=== PATIENT | female | born 1945 | race Caucasian/White ===

== ENCOUNTER → 2016-12-27 | Outpatient (CLI) | payer OTHER, MEDICARE | LOC: FIMAGING 09:03 | PROVIDERS: ATTEND Internal Medicine | DX: Z12.31 Encounter for screening mammogram for malignant neoplasm of breast (principal) | CPT/HCPCS: G0202 ==

== ENCOUNTER 2017-01-09 05:19 | Inpatient (IN) | payer OTHER, MEDICARE ==
[2017-01-09] MEDS ORDERED: LIDOCAINE 1% 2 ML INJ ID PRN (06:06)
[2017-01-09] MEDS ORDERED: LR 1,000 ML IV ONE (06:06)
[2017-01-09] MEDS ORDERED: THROMBIN (BOVINE) 5,000 UNIT VIAL TP ONE ×2 (06:49→08:17)
[2017-01-09] MEDS ORDERED: BUPIVACAINE/EPI 0.5% 30 ML SDV ONE (06:49)
[2017-01-09] MEDS ORDERED: CALCIUM CHLORIDE 1 GM/10 ML INJ ONE (06:49)
[2017-01-09] MEDS ORDERED: BACITRACIN 50,000 UNITS/10 ML SYR IRR ONE (06:50)
[2017-01-09] MEDS ORDERED: POLYMYXIN B SULFATE 500,000 UNIT/10 ML SYR IRR ONE (06:50)
[2017-01-09] MEDS ORDERED: KETAMINE 100 MG/10 ML SYR ONE (06:57)
[2017-01-09] MEDS ORDERED: fentaNYL 100 MCG/2 ML INJ ONE (06:57)
[2017-01-09] MEDS ORDERED: PROPOFOL/EMULSION 500 MG/50 ML BOTTLE IV ONE (06:58)
[2017-01-09] MEDS ORDERED: MIDAZOLAM 2 MG/2 ML VIAL ONE (06:58)
[2017-01-09] MEDS ORDERED: ceFAZolin 2 GM/DEXTROSE 100 ML IV ONE (07:00)
--- NOTE | 2017-01-09 07:03 | PDGENHP ---
History & Physical Chief Complaint: r knee pain History of Present Illness: knee pain Relevant Physical Exam: r knee pain Cardiorespiratory Assessment: rrr/cta
[2017-01-09] MEDS ORDERED: PROPOFOL 200 MG/20 ML VIAL ONE ×3 (08:14→08:50)
[2017-01-09] MEDS ORDERED: HYDROmorphONE/DILAUDID 1 MG/ML SYR IVP PRN (08:37)
[2017-01-09] MEDS ORDERED: DEXAMETHASONE 4 MG/ML VIAL IVP PRN (08:37)
[2017-01-09] MEDS ORDERED: ONDANSETRON 4 MG/2 ML VIAL IVP PRN ×2 (08:37→09:32)
[2017-01-09] MEDS ORDERED: LR 500 ML IV PRN (08:37)
[2017-01-09] MEDS ORDERED: ACETAMINOPHEN 500 MG TAB PO PRN (08:37)
[2017-01-09] MEDS ORDERED: NALOXONE HCL 0.4 MG/ML INJ IVP PRN (08:37)
--- NOTE | 2017-01-09 08:37 | PDANEPAE ---
ANE History of Present Illness 71 year old female with Right knee pain. She is taking a statin only for meds. She is otherwise healthy with no cardiac or pulmonary issues. She is active. ANE Past Medical History - Cardiovascular History Hx Hypertension: No Hx Arrhythmias: No Hx Chest Pain: No Hx Coronary Artery / Peripheral Vascular Disease: No Hx CHF / Valvular Disease: No Hx Palpitations: No - Pulmonary History Hx COPD: No Hx Asthma/Reactive Airway Disease: No Hx Recent Upper Respiratory Infection: Yes Hx Oxygen in Use at Home: No - Neurologic History Hx Cerebrovascular Accident: No Hx Seizures: No Hx Dementia: No - Endocrine History Hx Diabetes: No - Renal History Hx Renal Disorders: No - Liver History Hx Hepatic Disorders: No - Neurological & Psychiatric Hx Hx Neurological and Psychiatric Disorders: No - Cancer History Hx Cancer: Yes - Congenital Disorder History Hx Congenital Disorders: No - GI History Hx Gastrointestinal Disorders: No - Chronic Pain History Chronic Pain: Yes (oa) ANE Review of Systems - Exercise capacity METS (RN): 5 METS ANE Patient History - Allergies Allergies/Adverse Reactions: ephedrine [Ephedrine] Allergy (Severe, Verified 01/12/16 16:02) Other-Enter Comments Benzodiazepines Allergy (Intermediate, Verified 01/12/16 16:02) Other-Enter Comments latex [Latex] Allergy (Intermediate, Verified 01/12/16 16:02) Other-Enter Comments Sulfa (Sulfonamide Antibiotics) Allergy (Intermediate, Verified 01/12/16 16:02) Hives NARCOTICS Allergy (Mild, Uncoded 12/15/11 08:03) Other-Enter Comments - Home Medications Home Medications: Pravastatin Sodium 20 mg PO DAILY 01/11/16 [Last Taken 01/08/17 23:30] - NPO status NPO Since - Liquids (Date): 01/08/17 NPO Since - Liquids (Time): 03:00 NPO Since - Solids (Date): 01/08/17 NPO Since - Solids (Time): 23:00 - Smoking Hx Smoking Status: Never smoked - Family Anes Hx Family Hx Anesthesia Complications: none ANE Labs/Vital Signs - Vital Signs Blood Pressure: 131/82 Heart Rate: 70 Respiratory Rate: 18 O2 Sat (%): 94 Height: 167.64 cm Weight: 81.647 kg ANE Physical Exam - Airway Neck exam: FROM Mallampati Score: Class 1 Mouth exam: poor dentition - Pulmonary Pulmonary: no respiratory distress - Cardiovascular Cardiovascular: regular rate and rhythym - ASA Status ASA Status: II ANE Anesthesia Plan Anesthesia Plan: MAC, epidural Urgent/Emergent Case: Anes eval completed preop but documented later for safe timely pt care
[2017-01-09] MEDS ORDERED: morphINE PF 5 MG/10 ML INJ ONE (08:56)
[2017-01-09] MEDS ORDERED: ROPI/epiNEPH/KETOROLAC/morphINE JOINT COCKTAIL IU ONE (09:00)
[2017-01-09] MEDS ORDERED: CHLORHEXIDINE GLUC HIBICLENS 118 ML BTL TP ONE (09:00)
[2017-01-09] MEDS ORDERED: MAGNESIUM HYDROXIDE 30 ML UDCUP PO PRN (09:32)
[2017-01-09] MEDS ORDERED: DIPHENOXYLATE/ATROPINE LOMOTIL 1 TAB PO PRN (09:32)
[2017-01-09] MEDS ORDERED: PHARMACY PAIN CONSULT 1 EA MISC PRN (09:32)
[2017-01-09] MEDS ORDERED: diphenhydrAMINE 25 MG CAP PO PRN (09:32)
[2017-01-09] MEDS ORDERED: PROMETHAZINE HCL 25 MG/ML INJ IVP PRN (09:32)
[2017-01-09] MEDS ORDERED: LACTULOSE 20 GM/30 ML UDCUP PO PRN (09:32)
[2017-01-09] MEDS ORDERED: ONDANSETRON DISINTEGRATING 4 MG TAB PO PRN (09:32)
[2017-01-09] MEDS ORDERED: oxyCODONE IR 5 MG TAB PO PRN (09:32)
[2017-01-09] MEDS ORDERED: METOCLOPRAMIDE 10 MG/2 ML VIAL IVP PRN (09:32)
[2017-01-09] MEDS ORDERED: POLYETHYLENE GLYCOL 3350 17 GM PKT PO PRN (09:32)
[2017-01-09] MEDS ORDERED: CYCLOBENZAPRINE 10 MG TAB PO PRN (09:32)
[2017-01-09] MEDS ORDERED: BISACODYL 10 MG SUPP PR PRN (09:32)
[2017-01-09] MEDS ORDERED: TEMAZEPAM 15 MG CAP PO PRN (09:32)
[2017-01-09] MEDS ORDERED: PROMETHAZINE HCL 25 MG SUPPR PR PRN (09:32)
[2017-01-09] MEDS ORDERED: TAPENTADOL HCL 50 MG TAB PO PRN (09:32)
--- NOTE | 2017-01-09 09:32 | POSTOPPROG ---
Post Op Note Date of Operation: 01/09/17 Surgeon: Candy Crystal Hvac Maintenance Technician: coltrain Anesthesia: Epidural Pre-op Diagnosis: r knee oa Procedure: r tkr Inf/Abcess present in the surg proc area at time of surgery?: No Depth: Deep Incisional (Fascial) EBL: 100-500
[2017-01-09] MEDS ORDERED: LR 1,000 ML IV SCH (10:00)
[2017-01-09] MEDS: ACETAMINOPHEN 325 MG TAB PO SCH ×3 (11:55→23:45)
[2017-01-09] MEDS: traMADol 50 MG TAB PO SCH ×3 (11:55→23:45)
[2017-01-09] MEDS: KETOROLAC 30 MG/1 ML SDV IVP SCH ×3 (11:56→23:44)
[2017-01-09] MEDS: ceFAZolin 2 GM/DEXTROSE 100 ML IV SCH ×2 (13:53→21:17)
--- NOTE | 2017-01-09 15:02 | GOP ---
[f rep st] OPERATIVE REPORT DATE OF OPERATION: 01/09/2017 SURGEON: Candy Crystal MD TEST BORING CREW CHIEF: Killian Armenta, certified SA, whose presence was medically necessary. ANESTHESIA: By epidural nerve block, plus adductor nerve block per surgeon's request. PREOPERATIVE DIAGNOSIS: Right knee osteoarthritis. POSTOPERATIVE DIAGNOSIS: Right knee osteoarthritis. PROCEDURE PERFORMED: Right total knee arthroplasty. FINDINGS: INDICATIONS: This is a 71-year-old female with a long history of right knee pain, worsening with us e and with time despite multiple conservative measures. She wishes to have surgery in order to reso lve the problem. DESCRIPTION OF PROCEDURE: Patient brought to the operating room after the right side had been ident ified as the correct side by the patient, nurse and physician. Once in the operating room, she was given epidural nerve block and then sedation. She was placed supine on the operating room table. S he had a tourniquet placed around the upper portion of the right thigh, with the right lower extremi ty sterilely prepped and draped in usual fashion using GSI solution. Once prepped and draped, a linear incision was made on the anterior portion of the knee, 1 handbread th above and below the patella with sharp dissection carried down through the skin and subcutaneous layers, with bleeding controlled using electrocautery. A medial parapatellar incision was made thro ugh the extensor mechanism with the patella brought to the side but not everted. She was noted to h ave grade 4 chondral changes to the patellofemoral joint in the medial compartment, extensive grade 3 chondral changes laterally. The ACL along with the medial and lateral meniscus were removed. A custom jig was placed on the distal end of the femur with lug holes drilled for the custom jig, an d pins used to pin the distal cutting block into place. The jig was then removed with the cutting b lock left in place. Oscillating saw was used to remove the distal portion of the femur until leavin g a level surface. Pin holes and the lug holes were left within the femur. A secondary jig was put into place with the anterior posterior and the anterior chamfer cut put into place, and then a 3rd jig placed on the cut surface of the bone in order to do the posterior chamfer cuts. Once done, the femoral trial was put into place and the knee was able to achieve full extension without difficulty , suggesting an adequate amount of bone had been removed. The trial femur was then removed, knee brought to full flexion with tibia subluxed anteriorly. A cu stom jig was placed on the anterior portion of the tibia. Once in place, the feet associated with t he jig had been marked. The almaguer left on the cartilage, allowed the cartilage to be removed using ring curettes in order for the jig to sit directly onto the bone. Once sitting directly onto the terry ne, alignment was checked for varus, valgus and posterior slope. Once in place, the jig was pinned into place. Oscillating saw was used to remove the proximal portion of the tibia trial. A tibial t rial and femoral trial were then put into place, the knee was able to achieve full extension. There fore, the knee had been placed through range of motion multiple times in order to secure proper rota tion of the tibia. Then, proper rotation of the tibia was marked on the bone itself. Trials were r emoved. The knee was subluxed anteriorly. Tibial guide was put back into place, using the marysol marielle t had been previously made on the bone. It was pinned into place. A medullary reamer and keel punc h were then passed through the trial. These were all removed. The knee was brought to full extensi on. Patella was then everted, held in place with 2 towel clamps. It was measured to be 24 mm in th ickness. Oscillating saw was used to remove the posterior portion of the patella, leaving 14 mm of bone. Multiple trials were placed on the patellar surface, noted a 35 mm patellar button seemed to fit best. Therefore, the lug holes were drilled for a 35 mm button. All cut surfaces of bone were then thoroughly irrigated with antibiotic solution while the cement wa s being mixed. While we were waiting for the cement to get doughy, a joint cocktail was injected in to the posterior capsule along the periosteum of the femur and tibia. Once the cement had become do ughy, it was placed on the proximal end of the tibia with a custom-made tibial component from [employer] mist put into place and excess cement removed using Hershey elevator. Cement was placed on the ceramic tiler ior skids of the femoral component with cement placed on the distal anterior portions of the femur a nd a custom made femoral component from [employer] was put into place and excess cement removed in g Hershey elevator. Trial liner was placed in the tibial tray. The knee was brought to full extensio n over the pressurized cement. Cement was placed on the cut surface of the patella, with a 35 mm pa tellar button clamped into place and excess cement removed using Hershey elevator. Once cement had hardened, the wound was thoroughly irrigated with an antibiotic solution. A size 6 mm medial insert was placed in the tibial tray and a size A lateral insert was placed into the tibia l tray. The knee was able to achieve full extension. The knee was brought back to 30 degrees of fl exion. Tourniquet was deflated at 44 minutes. The wound was then closed using 0 Vicryl suture in a bunyyi-ft-lgqft type stitch for the extensor mechanism with plasma gel placed within the knee joint . 0 Vicryl and 2-0 Vicryl suture were used for the subcutaneous layers with plasma gel placed exter catalina over the extensor mechanism and a 4-0 V-Loc suture was used in a running subcuticular stitch t o close the skin. The wound was dressed with Steri-Strips, Xeroform, 4 x 4, and Kerlix. Leg was co mpletely undraped in the operating room, tourniquet removed from the thigh and an Óscar wrap placed ar ound the knee. She was then transferred onto a stretcher, and sent to recovery room in good conditi on. TOURNIQUET TIME: 44 minutes. /[id number]/MODL
[2017-01-09] MEDS: SENNOSIDES/DOCUSATE SODIUM TAB PO SCH (21:16)
[2017-01-09] MEDS: FAMOTIDINE 20 MG TAB PO SCH (21:16)
[2017-01-10] MEDS: KETOROLAC 30 MG/1 ML SDV IVP SCH ×4 (05:34→19:56)
[2017-01-10] MEDS: traMADol 50 MG TAB PO SCH ×3 (05:34→17:34)
[2017-01-10] MEDS: ACETAMINOPHEN 325 MG TAB PO SCH ×4 (05:35→23:59)
[2017-01-10] MEDS: RIVAROXABAN 10 MG TAB PO SCH (08:30)
[2017-01-10] MEDS: PRAVASTATIN SODIUM 20 MG TAB PO SCH (08:30)
[2017-01-10] MEDS: SENNOSIDES/DOCUSATE SODIUM TAB PO SCH ×2 (08:30→19:55)
[2017-01-10] MEDS: FAMOTIDINE 20 MG TAB PO SCH ×2 (08:30→19:56)
--- NOTE | 2017-01-10 09:06 | SOAPPROG ---
SOAP Progress Note Assessment/Plan: Assessment: Plan: doing well, no changes Possibly d/c tomorrow 01/10/17 09:05 Subjective: NO issues Objective: Vital Signs Temp Pulse Resp BP Pulse Ox 36.6 C 74 14 109/66 96 01/10/17 07:23 01/10/17 07:23 01/10/17 07:23 01/10/17 07:23 01/10/17 07:23 01/09/17 01/10/17 01/11/17 05:59 05:59 05:59 Intake Total 4300 Output Total 3115 Balance 1185 Dressing CDI, NVI, Calf neg dvt - Time Spent With Patient Time Spent With Patient: 5 - Pending Discharge Pending Discharge Within 24 Hours: No Pending Discharge Within 48 Hours: Yes Pending Discharge Date: 01/12/17 Pending Discharge Time: 11:00 ICD10 Worksheet Patient Problems: Problems Problem Status Onset Arthritis of shoulder region, left Acute
[2017-01-10 09:58] LABS: HEMATOCRIT 36.5 % (38.0-47.0); HEMOGLOBIN 11.9 g/dL (12.6-16.3)
[2017-01-11] MEDS: KETOROLAC 30 MG/1 ML SDV IVP SCH ×3 (00:01→13:26)
[2017-01-11 04:57] LABS: HEMATOCRIT 35.2 % (38.0-47.0); HEMOGLOBIN 11.6 g/dL (12.6-16.3)
[2017-01-11] MEDS: traMADol 50 MG TAB PO SCH ×3 (05:44→13:25)
[2017-01-11] MEDS: ACETAMINOPHEN 325 MG TAB PO SCH ×2 (05:45→13:25)
[2017-01-11 07:50] VITALS: BP 121/65; PULSE 90; RESP 16; TEMP 97.8; O2SAT 94
[2017-01-11] MEDS: RIVAROXABAN 10 MG TAB PO SCH (08:31)
[2017-01-11] MEDS: SENNOSIDES/DOCUSATE SODIUM TAB PO SCH (08:31)
[2017-01-11] MEDS: FAMOTIDINE 20 MG TAB PO SCH (08:31)
[2017-01-11] MEDS: PRAVASTATIN SODIUM 20 MG TAB PO SCH (08:32)
--- NOTE | 2017-01-11 12:16 | SOAPPROG ---
SOAP Progress Note Assessment/Plan: Assessment: Plan: d/c home with PT 01/10/17 09:05 01/11/17 12:16 Subjective: NO issues, doing well Objective: Vital Signs Temp Pulse Resp BP Pulse Ox 36.6 C 90 16 121/65 H 94 01/11/17 07:49 01/11/17 07:49 01/11/17 07:49 01/11/17 07:49 01/11/17 07:49 Laboratory Results 01/11/17 04:48 01/10/17 01/11/17 01/12/17 05:59 05:59 05:59 Intake Total 4300 600 Output Total 3115 Balance 1185 600 Wound CDI, calf nt, nvi - Time Spent With Patient Time Spent With Patient: 15 - Pending Discharge Pending Discharge Within 24 Hours: Yes Pending Discharge Within 48 Hours: No Pending Discharge Date: 01/12/17 Pending Discharge Time: 11:00 ICD10 Worksheet Patient Problems: Problems Problem Status Onset Arthritis of shoulder region, left Acute
--- NOTE | 2017-01-11 12:20 | PDIAF ---
- Diagnosis Code Status: Full Code - Medication Management Discharge Medications: Medications to Continue on Transfer Pravastatin Sodium 20 mg PO DAILY 01/11/16 [Last Taken 01/08/17 23:30] Rivaroxaban [Xarelto 10mg (*)] 10 mg PO DAILY #0 tab 01/11/17 [Last Taken Unknown] Discharge Medications: Refer to the Discharge Home Medication list for PRN reason. PICC Care - Routine: N/A - Orders Services needed: Physical Therapy Diet Recommendation: no restrictions on diet Diet Texture: Regular Texture Diet Erazo: No - Follow Up Care Current Providers and Referrals: Stefanie Raza MD [Primary Care Provider] -
== END 2017-01-11 14:45 | disposition home health service (06) | DRG 470 ==
LOC: F3N 05:19
PROVIDERS: ADMIT Orthopaedic Surgery; ATTEND Orthopaedic Surgery
PROC: 0SRC0J9 Replacement of Right Knee Joint with Synthetic Substitute, Cemented, Open Approach (ICD-10-PCS; principal; 2017-01-09 07:15)
DX: M17.11 Unilateral primary osteoarthritis, right knee (principal)
CPT/HCPCS: 97110-GP; 97116-GP; 97161-GP; 97165-GO; C1713; G8978-GP-CK; G8979-GP-CI; G8980-GP-CI; G8987-GO-CI; G8988-GO-CI; G8989-GO-CI; J0171; J0690; J1885; J2250; J2274; J2704; J2795; J3010; L1832

== ENCOUNTER → 2017-02-13 | Outpatient (CLI) | payer OTHER, MEDICARE | LOC: FIMAGING 09:11 | PROVIDERS: ATTEND Internal Medicine | DX: M81.0 Age-related osteoporosis without current pathological fracture (principal); E78.5 Hyperlipidemia, unspecified; R53.82 Chronic fatigue, unspecified; R73.02 Impaired glucose tolerance (oral) ==